=== PATIENT | female | born 1990 | race Caucasian/White ===

== ENCOUNTER → 2016-07-07 | Outpatient (CLI) | payer OTHER ==
--- NOTE | 2016-07-07 19:52 | DX ---
Complete Cervical Spine, With Flexion/Extension - Seven Views Indication: Neck pain on the right. Technique: AP, dens, obliques, and three upright lateral views in the flexed, extended, and neutral position. Comparison: None. Findings: The occiput through T1 is anatomically aligned. No instability with flexion/extension man euvers. Disk heights are well preserved. No degenerative disk and facet arthropathy. The oblique v iews reveal no bony encroachment upon the neural foramen. The lung apices are clear. The cervicotho racic junction has minimal levocurvature, which may be due to muscle spasm or positioning. Impression: Normal cervical spine. No evidence of instability, arthropathy, or remote injury.
== END ==
LOC: BRMIMAGING 12:03
PROVIDERS: ATTEND Physician Assistant
DX: M54.2 Cervicalgia (principal); R20.2 Paresthesia of skin
CPT/HCPCS: 72052-PO